=== PATIENT | female | born 1965 | race Caucasian/White ===

== ENCOUNTER → 2020-02-12 | Outpatient (CLI) | payer OTHER ==
[~2020-02-12] MED LIST: Biotin1 MG; CEPH500 PO; COLLAGEN; Daily Multiple1 EACH; FISH1000; HYDACE5 PO; IBUP600 PO; OXYC30; Percocet 10-321 EACH
== END | disposition home or self-care (01) ==
LOC: PLD 08:18 → LAB SHORT 08:18
DX: C44.519 Basal cell carcinoma of skin of other part of trunk (principal)
CPT/HCPCS: 88305